=== PATIENT | female | born 1995 | race Caucasian/White ===

== ENCOUNTER 2017-02-03 18:24 | Emergency (ER) | payer SELFPAY ==
[~2017-02-03] VITALS: Ht 152.4 cm; Wt 58.3 kg
--- OUTSIDE RECORDS SUMMARY | 2017-02-03 18:29 | XMS REPORT ---
Author Elen Rivera Organization [employer] Address Unknown Phone Unavailable Care Team Providers Care Shot Man Name Role Phone Elen Dominguez CP Unavailable Allergies No Known Allergies Problems Problem Type Condition Code Onset Dates Condition Status Problem Herpes simplex without mention of complication (HSV) 054.9 Active Problem Chlamydia A74.9 Active Medications Medication Code System Code Instructions Start Date End Date Status Dosage Azithromycin [facility] [address]-65 500 mg Orally Once Jun 22, 2016 Jun 23, 2016 2 tab(s) Results No Known Results Summary Purpose [employer] Submission
--- OUTSIDE RECORDS SUMMARY | 2017-02-03 18:29 | XMS REPORT ---
Author Elen Rivera Organization [employer] Address Unknown Phone Unavailable Care Team Providers Care Igniter Capper Name Role Phone Elen Dominguez CP Unavailable Allergies No Known Allergies Problems Problem Type Condition Code Onset Dates Condition Status Problem Herpes simplex without mention of complication (HSV) 054.9 Active Medications Medication Code System Code Instructions Start Date End Date Status Dosage Acyclovir [facility] [address]-44 400 MG Orally Twice a day Dec 04, 2014 1 tablet Results No Known Results Summary Purpose [employer] Submission
--- OUTSIDE RECORDS SUMMARY | 2017-02-03 18:29 | XMS REPORT ---
Author Elen Rivera Organization [employer] Address Unknown Phone Unavailable Care Team Providers Care Retail Project Merchandiser Name Role Phone Elen Dominguez CP Unavailable Allergies No Known Allergies Problems Problem Type Condition Code Onset Dates Condition Status Problem Herpes simplex without mention of complication (HSV) 054.9 Active Problem Chlamydia A74.9 Active Medications No Known Medications Results No Known Results Summary Purpose [employer] Submission
--- OUTSIDE RECORDS SUMMARY | 2017-02-03 18:29 | XMS REPORT ---
Author Elen Rivera Organization [employer] Address Unknown Phone Unavailable Care Team Providers Care Flight Physician Name Role Phone Elen Dominguez CP Unavailable Allergies No Known Allergies Problems Problem Type Condition Code Onset Dates Condition Status Assessment Surveillance of previously prescribed contraceptive pill (OCP) V25.41 Active Problem Herpes simplex without mention of complication (HSV) 054.9 Active Medications Medication Code System Code Instructions Start Date End Date Status Dosage Sprintec 28 [facility] [address]-19 0.25-35 MG-MCG Orally Once a day 1 tablet Results No Known Results Summary Purpose [employer] Submission
--- OUTSIDE RECORDS SUMMARY | 2017-02-03 18:29 | XMS REPORT ---
Author Elen Rivera [facility] [employer] Address Unknown Phone Unavailable Care Team Providers Care Gasateria Attendant Name Role Phone Elen Dominguez Unavailable Allergies, Adverse Reactions, Alerts Substance Reaction Event Type N.K.D.A. 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.0 Active Medications Medication Code System Code Instructions Start Date End Date Status Dosage Sprintec 28 [facility] [address]-63 0.25-35 MG-MCG Orally Once a day 1 tablet Ibuprofen [facility] [place] [address]-18 600 MG Orally Three times a day 1 tablet Acyclovir [facility] [place] [place] [address]-74 400 MG Orally Twice a day Dec 04, 2014 1 tablet Flagyl [facility] [place] [address]-87 500 mg Orally bid Jun 15, 2016 Jun 22, 2016 1 tablet Procedures Procedure Coding System Code Date GC probe CPT-4 59340 Jun 15, 2016 Wet smear CPT-4 31887 Jun 15, 2016 Chlamydia probe CPT-4 77227 Jun 15, 2016 Preg test, urine CPT-4 34408 Jun 15, 2016 Urinalysis without micro CPT-4 72187 Jun 15, 2016 HPV (Gardasil) CPT-4 83803 Jun 15, 2016 Office visit estab lev 3 CPT-4 59972 Jun 15, 2016 Vital Signs Date/Time: Jun 15, 2016 BMI 24.18 Index Height 61 in Weight 128 lbs Blood Pressure Diastolic 70 mm Hg Blood Pressure Systolic 130 mm Hg Results Name Result Date Reference Range Unit Abnormality Flag * WET MOUNT (CPK & FMW) ----WET MOUNT See Below [id number] * TEST URINE ----UR TEST NEGATIVE [id number] NEGATIVE N * UA URINALYSIS WITH REFLEX ----UA KETONE DIPSTICK NEGATIVE 20160615 NEGATIVE N ----UA GLUCOSE DIPSTICK NEGATIVE 20160615 NEGATIVE N ----UA BILIRUBIN DIPSTICK NEGATIVE 20160615 NEGATIVE N ----UA BLOOD DIPSTICK NEGATIVE 20160615 NEGATIVE N ----UA UROBILINOGEN DIPSTICK NORMAL 20160615 NORMAL N ----UA NITRITE DIPSTICK NEGATIVE 20160615 NEGATIVE N ----UA PROTEIN DIPSTICK TRACE 20160615 NEGATIVE N ----UR PH 5.0 [id number] 5.0-7.0 N ----UA LEUKOCYTE ESTERASE DIPSTICK TRACE 20160615 NEGATIVE N ----UA SPECIFIC GRAVITY 1.025 [id number] 1.015-1.025 N Immunizations Vaccine Administration Date HPV (Gardasil) Jun 15, 2016 Summary Purpose eClinicalWorks Submission
--- OUTSIDE RECORDS SUMMARY | 2017-02-03 18:29 | XMS REPORT | Referral Summary ---
Author Author [facility] Organization [facility] Address Unknown Phone Unavailable Care Team Providers Care Shell Freezing Machine Operator Name Role Phone No PCP, Pt States Primary Care Physician [phone] Encounter [facility] [id number] Date(s): 06/13/15 - 06/13/15 [facility] [address] [place] [address] Final: ALCOHOL ABUSE, UNSPECIFIED DRINKING BEHAVIOR Discharge Diagnosis: Acute alcohol intoxication Discharge Disposition: 01-Home or Self Care Attending Physician: Ryley Ramos MD Admitting Physician: Ryley Ramos MD Vital Signs Most recent to 1 oldest [Reference Range]: Temperature Oral 37 degC [35.8-37.3 degC] (06/13/15 8:23 PM) Peripheral Pulse 81 bpm Rate [60-100 bpm] (06/13/15 8:23 PM) Heart Rate Monitored 85 bpm [60-100 bpm] (06/13/15 11:28 PM) Respiratory Rate 16 br/min [14-20 br/min] (06/13/15 11:28 PM) Blood Pressure 105/74 mmHg [90-140/60-90 mmHg] (06/13/15 11:28 PM) Mean Arterial 89 mmHg Pressure, Cuff (06/13/15 9:25 PM) SpO2 98 % (06/13/15 11:28 PM) Problem List Condition Effective Dates Status Health Status Informant Asthma(Confirmed) Active patient Allergies, Adverse Reactions, Alerts No Known Allergies Medications No data available for this section Results Hematology Most recent to 1 oldest [Reference Range]: WBC [4.8-10.8 5.7 10*3/uL 10*3/uL] (06/13/15 9:29 PM) RBC [4.00-5.20 4.58 10*6/uL 10*6/uL] (06/13/15 9:29 PM) Hgb [12.0-16.0 12.5 gm/dL gm/dL] (06/13/15:29 PM) Hct [37.0-47.0 %] 37.8 % (06/13/15:29 PM) MCV [82.0-99.0 fL] 82.5 fL (06/13/15:29 PM) MCH [27.0-32.0 pg] 27.3 pg (06/13/15: PM) MCHC [32.0-36.0 33.1 gm/dL gm/dL] (06/13/15:29 PM) RDW [11.5-14.5 %] 14.7 % *HI* (06/13/15:29 PM) Platelet [150-400 255 10*3/uL 10*3/uL] (06/13/15:29 PM) MPV [9.4-12.4 fL] 9.4 fL (06/13/15:29 PM) Immature 0.2 % Granulocytes (06/13/1529 PM) [0.0-1.0 %] Neutrophils [51-75 70 % %] (06/13/15:29 PM) Lymphocytes [20-46 24 % %] (06/13/15:29 PM) Monocytes [4-11 %] 4 % (06/13/15:29 PM) Eosinophils [0-4 %] 1 % (06/13/15:29 PM) Basophils [0-2 %] 0 % (06/13/15:29 PM) Neutro Absolute 4.02 10*3 [1.90-7.00 10*3] (06/13/15:29 PM) Lymph Absolute 1.38 10*3 [0.80-3.30 10*3] (06/13/15:29 PM) Person Absolute 0.21 10*3 [0.30-1.00 10*3] *LOW* (06/13/15:29 PM) Eos Absolute 0.08 10*3 [0.00-0.50 10*3] (06/13/15:29 PM) Baso Absolute 0.02 10*3 [0.00-0.20 10*3] (06/13/15:29 PM) Nucleated RBC 0.0 /100 WBC Automated [0 /100 (06/13/15:29 PM) WBC] Chemistry Most recent to 1 oldest [Reference Range]: Sodium Lvl [136-144 143 mEq/L mEq/L] (06/13/15:29 PM) Potassium Lvl 3.4 mEq/L [3.6-5.1 mEq/L] *LOW* (06/13/15:29 PM) Chloride [99-109 108 mEq/L mEq/L] (06/13/15:29 PM) CO2 [22-32 mEq/L] 23 mEq/L (06/13/15:29 PM) AGAP [3-20] 12 (06/13/15:29 PM) BUN [4-20 mg/dL] 9 mg/dL (06/13/15:29 PM) Glucose Lvl [70-100 102 mg/dL mg/dL] *HI* (06/13/15:29 PM) Creatinine Lvl 0.73 mg/dL [0.44-1.03 mg/dL] (06/13/15:29 PM) eGFR [>60] >60 1 (06/13/15:29 PM) Calcium Lvl 9.0 mg/dL [8.6-10.0 mg/dL] (06/13/15:29 PM) Albumin Lvl [3.5-4.8 4.3 gm/dL gm/dL] (06/13/15:29 PM) Total Protein 7.2 gm/dL [6.1-7.9 gm/dL] (06/13/15:29 PM) Globulin [1.9-4.3 2.9 gm/dL gm/dL] (06/13/15:29 PM) ALT [14-54 U/L] 20 U/L (06/13/15:29 PM) AST [15-41 U/L] 27 U/L (06/13/15:29 PM) Alk Phos [26-104 46 U/L U/L] (06/13/15:29 PM) Bili Total [0.2-1.2 0.7 mg/dL 2 mg/dL] (8/8/15 9:29 PM) 1Result Comment: Multiply eGFR results by 1.21 for race. 2Result Comment: Naproxen, specifically the metabolite O-desmethylnaproxen, may cause spurious elevation in Total Bilirubin levels. Therapeutic Drug Monitoring Most recent to 1 oldest [Reference Range]: Acetaminophen Lvl <10 mcg/mL [10-30 mcg/mL] (06/13/15 9:29 PM) Salicylate Lvl [0-30 <4 mg/dL mg/dL] (06/13/15 9:29 PM) Toxicology Most recent to 1 oldest [Reference Range]: Ethanol Lvl 183 mg/dL (06/13/15 9:29 PM) U Amphetamine Scrn Negative (06/13/15 9:29 PM) U Cocaine Scrn Negative (06/13/15 9:29 PM) U Cannab Scrn Negative (06/13/15 9:29 PM) U Opiate Scrn Negative (06/13/15 9:29 PM) U PCP Scrn Negative (06/13/15 9:29 PM) U Benzodiazepine Negative Scrn (06/13/15 9:29 PM) U Barbiturate Scrn Negative (06/13/15 9:29 PM) Methadone Lvl Negative (06/13/15 9:29 PM) Tricyclics Not Detected 1 (06/13/15 9:29 PM) 1Result Comment: Cut-off concentrations: Amphetamines: 1000 ng/mL Cocaine: 300 ng/mL Cannabinoid: 50 ng/mL Opiate: 300 ng/mL Phencyclidine (PCP): 25 ng/mL Benzodiazepine: 200 ng/mL Barbiturate: 200 ng/mL Methadone: 300 ng/mL Tricyclic: 300 ng/mL The urine drug screen assays are qualitative screens. A more specific GC/MS method must be performed to obtain a confirmed analytical result. Unconfirmed screening results must not be used for non-medical purposes(e.g. employment or legal testing) Immunizations No data available for this section Procedures No data available for this section Social History Social History Type Response Smoking Status Unknown if ever smoked Assessment and Plan No data available for this section
--- OUTSIDE RECORDS SUMMARY | 2017-02-03 18:29 | XMS REPORT ---
Author Elen Rivera Organization [employer] Address Unknown Phone Unavailable Care Team Providers Care Meat Pickler Name Role Phone Elen Dominguez CP Unavailable Allergies No Known Allergies Problems Problem Type Condition Code Onset Dates Condition Status Problem Herpes simplex without mention of complication (HSV) 054.9 Active Problem Chlamydia A74.9 Active Medications Medication Code System Code Instructions Start Date End Date Status Dosage Azithromycin [facility] [address]-38 500 mg Orally Once Jun 22, 2016 Jun 25, 2016 2 tab(s) Results No Known Results Summary Purpose eClinicalWorks Submission
--- OUTSIDE RECORDS SUMMARY | 2017-02-03 18:29 | XMS REPORT | Continuity of Care Document ---
Author Author [facility] Organization [facility] Address Unknown Phone Unavailable Allergies Active Description Code Type Severity Reaction Onset Reported/Identified Relationship to Patient Clinical Status Yes No Known Allergies No Known Allergies Drug Allergy Unknown N/A 07/25/2014 Yes No Known Drug Allergy [id number] ND N/A N/A 01/14/2017 Confirmed or Verified Yes No Known Food Allergy NO KNOWN FOOD ALLERG NF N/A N/A 01/14/2017 Confirmed or Verified Medications Problems Procedures Results Test Result Range URINALYSIS, ROUTINE - 07/25/14 16:00 UA LEUKOCYTE ESTERASE DIPSTICK NEGATIVE NEGATIVE UA NITRITE DIPSTICK NEGATIVE NEGATIVE UA PROTEIN DIPSTICK NEGATIVE NEGATIVE UA GLUCOSE DIPSTICK NEGATIVE NEGATIVE UA KETONE DIPSTICK NEGATIVE NEGATIVE UA UROBILINOGEN DIPSTICK NORMAL NORMAL UA BILIRUBIN DIPSTICK NEGATIVE NEGATIVE UA BLOOD DIPSTICK NEGATIVE NEGATIVE UA SPECIFIC GRAVITY 1.005 1.015-1.025 UR PH 6.0 5.0-7.0 UR TEST - 07/25/14 16:00 UR TEST NEGATIVE NEGATIVE GONORRHOEA DNA BY PCR - CHLAMYDIA DNA BY PCR - 07/25/14 16:00 Microbiology WET MOUNT - 07/25/14 16:15 Microbiology GRAM STAIN - CHLAMYDIA DNA BY PCR - 07/25/14 16:15 Microbiology URINALYSIS, ROUTINE - 08/03/14 21:36 UA LEUKOCYTE ESTERASE DIPSTICK 1+ NEGATIVE UA NITRITE DIPSTICK NEGATIVE NEGATIVE UA PROTEIN DIPSTICK NEGATIVE NEGATIVE UA GLUCOSE DIPSTICK NEGATIVE NEGATIVE UA KETONE DIPSTICK NEGATIVE NEGATIVE UA UROBILINOGEN DIPSTICK NORMAL NORMAL UA BILIRUBIN DIPSTICK NEGATIVE NEGATIVE UA BLOOD DIPSTICK NEGATIVE NEGATIVE UA SPECIFIC GRAVITY 1.010 1.015-1.025 UR PH 7.0 5.0-7.0 UR TEST - 08/03/14 21:36 UR TEST NEGATIVE NEGATIVE UA MICROSCOPIC - 08/03/14 21:36 UA BACTERIA 2+ NEGATIVE UA EPITHELIAL CELLS 4+ epi/hpf 0 - 1+ UA MUCUS 1+ NEG TO 1+ UA RBC 0 rbc/hpf 0 - 3 UA VOLUME FOR EXAM 12.0 mL (12mL STD) UA WBC 0-1 wbc/hpf 0 - 5 VIRUS HERPES CULTURE - 08/03/14 22:00 Microbiology URINALYSIS, ROUTINE - 11/01/14 18:56 UA LEUKOCYTE ESTERASE DIPSTICK TRACE NEGATIVE UA NITRITE DIPSTICK NEGATIVE NEGATIVE UA PROTEIN DIPSTICK NEGATIVE NEGATIVE UA GLUCOSE DIPSTICK NEGATIVE NEGATIVE UA KETONE DIPSTICK NEGATIVE NEGATIVE UA UROBILINOGEN DIPSTICK NORMAL NORMAL UA BILIRUBIN DIPSTICK NEGATIVE NEGATIVE UA BLOOD DIPSTICK NEGATIVE NEGATIVE UA SPECIFIC GRAVITY 1.010 1.015-1.025 UR PH 8.0 5.0-7.0 UR TEST - 11/01/14 18:56 UR TEST NEGATIVE NEGATIVE UA MICROSCOPIC - 11/01/14 18:56 UA BACTERIA 1+ NEGATIVE UA EPITHELIAL CELLS 1+ epi/hpf 0 - 1+ UA RBC 0-3 rbc/hpf 0 - 3 UA VOLUME FOR EXAM 12.0 mL (12mL STD) UA WBC 0-1 wbc/hpf 0 - 5 WET MOUNT - 11/01/14 20:02 Microbiology GRAM STAIN - CHLAMYDIA DNA BY PCR - 11/01/14 20:02 Microbiology WET MOUNT - 07/29/15 12:17 Microbiology GONORRHOEA DNA BY PCR - CHLAMYDIA DNA BY PCR - 07/29/15 12:17 GONORRHOEA DNA BY PCR See Below Microbiology Comprehensive Metabolic Panel - 01/14/17 06:28 Sodium 139 MMOLL 134-145 Potassium 4.1 MMOLL 3.6-5.0 Chloride 102 MMOLL 98-107 CO2 24 MMOLL 22-30 Glucose 139 MG/DL 75-110 BUN 13 MG/DL 9-20 Creatinine .73 MG/DL 0.8-1.7 Calcium 8.5 MG/DL 8.4-10.2 T Bili .9 MG/DL 0.2-1.3 T. Protein 7.2 G/DL 6.3-8.2 A/G Ratio 1.3 RATIO Albumin 4.0 G/DL 3.5-5.0 Alk Phos 55 U/L 38-126 ALT 32 U/L 11-66 AST 25 U/L 14-36 EGFR 101 MLMIN Urine - 01/14/17 06:28 Urine NEG Urinalysis - 01/14/17 06:41 Squamous Epis N11-15 Bilirubin Negative Negative Blood 1+ Negative Color Yellow Glucose Negative Negative Ketones Negative Negative Leukocyte Negative Negative Nitrite Negative Negative pH 8.5 5.0-9.0 Urine Appearance Clear Protein Trace Negative Urobilinogen 0.2 MG/DL 0.20 Urine Bacteria Trace Urine Comments NEW SAMPLE Urine RBC N0-2 Specific [place] 1.020 1.005-1.030 Urine WBC N0-2 Site UNK CBC - 01/14/17 07:31 Eos # 0.02 x10^3 0-0.5 Eos % 0.2 % 0-4 HCT 40.7 % 37.0-47.0 HGB 13.6 G/DL 12.0-16.0 Lymph # 0.54 x10^3 1.0-4.0 Lymph % 4.7 % 20-50 MCH 28.9 PG 27.0-31.0 MCHC 33.4 G/DL 32.0-36.0 MCV 86.6 FL 81-99 White # 0.19 x10^3 0.0-0.8 White % 1.7 % 1.0-9.0 MPV 9.2 FL 6.0-10.0 Platelet 218 x10^3 150-400 RBC 4.70 x10^3 4.20-5.40 RDW 13.6 % 12-15 WBC 11.46 x10^3 4.8-10.8 Baso # 0.00 x10^3 0-0.2 Baso % 0.0 % 0-2 Neut % 93.4 % 50-70 Neut # 10.71 x10^3 3.0-7.0 AFFIRM Vaginitis Panel - 01/14/17 08:09 Gardnerella POS Negative Trichomonas NEG Negative Gwendolyn POS Negative GC Chlamydia Probe Screen - 01/15/17 15:06 GC Profile Screen Source VAG GC Chlamydia Probe See Comment URINALYSIS, ROUTINE - 01/16/17 15:00 UA LEUKOCYTE ESTERASE DIPSTICK 2+ NEGATIVE UA NITRITE DIPSTICK NEGATIVE NEGATIVE UA PROTEIN DIPSTICK 1+ NEGATIVE UA GLUCOSE DIPSTICK NEGATIVE NEGATIVE UA KETONE DIPSTICK NEGATIVE NEGATIVE UA UROBILINOGEN DIPSTICK 2+ NORMAL UA BILIRUBIN DIPSTICK 1+ NEGATIVE UA BLOOD DIPSTICK 4+ NEGATIVE UA SPECIFIC GRAVITY 1.015 1.015-1.025 UR PH 6.0 5.0-7.0 UA MICROSCOPIC - 01/16/17 15:00 UA BACTERIA 1+ NEGATIVE UA EPITHELIAL CELLS 4+ epi/hpf 0 - 1+ UA MUCUS 2+ NEG TO 1+ UA RBC 20-50 rbc/hpf 0 - 3 UA VOLUME FOR EXAM 12.0 mL (12mL STD) UA WBC 2-5 wbc/hpf 0 - 5 UR TEST - 01/16/17 15:00 UR TEST NEGATIVE NEGATIVE CBC W/DIFF - 01/16/17 15:20 EOSINOPHIL # 0.1 k/cumm 0.1-0.5 EOSINOPHIL % 1 % 2-4 GRANULOCYTE # 9.6 k/cumm 2.0-9.0 GRANULOCYTE % 83 % 50-75 LYMPHOCYTE # 1.2 k/cumm 1.0-4.0 LYMPHOCYTE % 10 % 20-30 MEAN CELL HGB 28.9 pg 27.0-33.0 MEAN CELL HGB CONCENTRATION 33.9 g/dL 32.0-37.0 MEAN CELL VOLUME 85.2 fl 80.0-100.0 MONOCYTE # 0.7 k/cumm 0.1-1.0 MONOCYTE % 6 % 4-6 RED BLOOD CELL 4.40 m/cumm 4.00-6.00 RED CELL DISTRIBUTION WIDTH 13.9 % 11.0- 15.6 WHITE BLOOD CELL 11.6 k/cumm 5.0-10.0 HEMOGLOBIN 12.7 gm/dL 12.0-16.0 HEMATOCRIT 37.5 % 37.0-47.0 PLATELET COUNT 255 k/cumm 150-450 METABOLIC PANEL, COMPREHN - 01/16/17 15:20 POTASSIUM 3.2 mmol/L 3.5-5.3 EST GFR (MDRD) > 60 mL/min > 59 ANION GAP 9 mmol/L 5-15 EST CrCl (CG) 58 mL/min > 59 GLUCOSE 103 mg/dL 70-99 CALCIUM 9.4 mg/dL 8.5-10.1 BLOOD UREA NITROGEN 20 mg/dL 7-20 CREATININE 1.1 mg/dL 0.6-1.0 SODIUM 139 mmol/L 135-148 CHLORIDE 101 mmol/L 98-110 AST/SGOT 25 Units/L 10-37 ALT/SGPT 24 Units/L < 66 CARBON DIOXIDE 29 mmol/L 21-32 TOTAL PROTEIN 8.1 gm/dL 6.4-8.2 ALBUMIN 3.6 gm/dL 3.4-5.0 BILI TOTAL 0.8 mg/dL 0.0-1.0 ALKALINE PHOSPHATASE TOTAL 81 IU/L 45- 117 WET MOUNT - 01/16/17 17:00 Microbiology GRAM STAIN - CHLAMYDIA DNA BY PCR - 01/16/17 17:00 Microbiology CHLAMYDIA DNA BY PCR - 01/16/17 17:00 Microbiology Encounters ACCT No. Visit Date/Time Discharge Status Pt. Type Provider Facility Loc./Unit Complaint [id number] 01/16/2017 14:51:00 2016 19:18:00 DIS Emergency Lisa RICHARD, Syed [facility] W.EDW [id number] 11/01/2014 17:17:00 2013 21:50:00 DIS [facility] [id number] 08/03/2014 19:35:00 2013 22:14:00 DIS Emergency Madhuri RICHARD, [facility] W.EDW [id number] 07/25/2014 15:45:00 2013 17:15:00 DIS Emergency Secrist , [facility] W.ED [id number] 05/03/2013 11:52:00 2012 12:20:00 DIS Emergency Secrist [facility].EDW [id number] 07/29/2015 12:17:00 Document Registration
--- OUTSIDE RECORDS SUMMARY | 2017-02-03 18:29 | XMS REPORT ---
Author Jayshree Valdez Organization [employer] Address Unknown Phone Unavailable Care Team Providers Care Sewer Cleaner Name Role Phone Jayshree Odonnell CP Unavailable Allergies No Known Allergies Problems Problem Type Condition Code Onset Dates Condition Status Problem Herpes simplex without mention of complication (HSV) 054.9 Active Medications No Known Medications Results No Known Results Summary Purpose [employer] Submission
[2017-02-03 18:45] VITALS: Ht 152.4 cm; Wt 58.3 kg
[2017-02-03] MEDS ORDERED: ACYC400T PO (18:54)
--- OUTSIDE RECORDS SUMMARY | 2017-02-03 19:00 | XMS REPORT | Continuity of Care Document ---
Author Author [facility] Organization [facility] Address Unknown Phone Unavailable Allergies Active Description Code Type Severity Reaction Onset Reported/Identified Relationship to Patient Clinical Status Yes No Known Allergies No Known Allergies Drug Allergy Unknown N/A 07/25/2014 Yes No Known Drug Allergy [id number] ND N/A N/A 01/14/2017 Confirmed or Verified [...] Comments NEW SAMPLE Urine RBC N0-2 Specific Echo 1.020 1.005-1.030 Urine WBC N0-2 Site UNK CBC - 01/14/17 07:31 Eos # 0.02 x10^3 0-0.5 Eos % 0.2 % 0-4 HCT 40.7 % 37.0-47.0 HGB 13.6 G/DL 12.0-16.0 Lymph # 0.54 x10^3 1.0-4.0 Lymph % 4.7 % 20-50 MCH 28.9 PG 27.0-31.0 MCHC 33.4 G/DL 32.0-36.0 MCV 86.6 FL 81-99 [place] # 0.19 x10^3 0.0-0.8 [place] % 1.7 % 1.0-9.0 MPV 9.2 FL [...] Status Pt. Type Provider Facility Loc./Unit Complaint [id number] 01/16/2017 14:51:00 2016 19:18:00 DIS Emergency Lisa RICHARD, Syed [facility] W.EDW [id number] 11/01/2014 17:17:00 2013 21:50:00 DIS [facility] [id number] 08/03/2014 19:35:00 2013 22:14:00 DIS Emergency Madhuri RICHARD, [facility] W.EDW [id number] 07/25/2014 15:45:00 2013 17:15:00 DIS Emergency Secrist , [facility] W.ED [id number] 05/03/2013 11:52:00 2012 12:20:00 DIS Emergency Secrist [facility].EDW [id number] 07/29/2015 12:17:00 Document Registration
[2017-02-03] MEDS ORDERED: KETOROLAC 60mg/2ml INJECTION IM ONE (19:30)
--- NOTE | 2017-02-03 19:40 | NUR ---
PROVIDER AT BEDSIDE
[2017-02-03 19:56] LABS: BLOOD, URINE NEGATIVE (NEGATIVE); COLOR,URINE YELLOW (YELLOW); LEUKOCYTE ESTERASE ,URINE NEGATIVE (NEGATIVE); NITRITE,URINE NEGATIVE (NEGATIVE); UROBILINOGEN,URINE 0.2 EU/DL (NORMAL)
[2017-02-03] MEDS ORDERED: AZITHROMYCIN 500 MG TABLET PO ONE (20:00)
[2017-02-03] MEDS ORDERED: CEFTRIAXONE 250 MG INJECTION IM ONE (20:00)
[2017-02-03] MEDS ORDERED: ONDA4TAB7 PO (20:04)
--- NOTE | 2017-02-03 20:05 | ERPDOC ---
Departure Disposition Decision Date: Feb 03, 2017 Disposition Decision Time: 20:02 Disposition: 01 DISCHARGED HOME, SELF-CARE Impression Impression Impression: Primary Impression: PID (acute pelvic inflammatory disease) Additional Impression: Chlamydia infection Severity: Moderate Condition: Improved Seen By: Physician only Referrals: YOUR PHYSICIAN 1 Week Patient Instructions: Pelvic Inflammatory Disease (ED) Problems/Meds/Labs Reviewed?: Yes Medications reviewed and manag: Yes Additional Instructions: You have been treated for PID. Do not have unprotected sex until your partner is evaluated and treated too. Follow up with your doctor in the next week. Follow up care ordered?: Yes Mental Status: Alert, Oriented Scripts Ondansetron (Zofran Odt) 4 Mg Tab.rapdis 4 MG PO QID Y for NAUSEA &/OR VOMITING, #20 TAB 0 Refills Prov: MARCHTAJ DO 02/03/17 HPI - Female General Chief Complaint: Female Urogenital Problems Stated Complaint: SHARP STOMACH PAINS Time Seen by Provider: 18:55 Source: patient, family Exam Limitations: no limitations HPI - Female Initial Comments 21yo woman presents to the ER for recurrent lower abdominal pain. Pt has sharp, abdominal pain that started 1 week ago and has become progressively worse. Now cannot find comfort in any position, and movement causes severe pain. Pt had similar sx 1 month ago; was dx'ed with chlamydial PID. Pt underwent successful treatment. Has since had unprotected intercourse with the same man (her current boyfriend, who was not treated). Pt is pretty sure that she has PID again, since this feels identical. Occurred At: home Onset: Gradual, Getting worse Duration: 1 week Pain Scale: Now & Worst: 8/10 Severity/Quality: aching, sharpness, throbbing Location: RLQ, LLQ, vaginal Activities at Onset: none Prior Genitourinary Problems: similar symptoms Sexual [place] History: single partner Modifying Factors: WORSE WITH: movement, palpation, sitting, walking Associated Symptoms: fever/chills, nausea/vomiting Hx of Similar Symptoms: Yes Is Pt now?: No Allergies: Coded Allergies: NKDA (Verified Allergy, Unknown, 02/03/17) Past History Past Medical History Female: PID Review of Systems GI Upper Abdomen: nausea, DENIES: vomiting Lower Abdomen: pain, DENIES: constipation, diarrhea General: burning, hx of STD's, pain Female: burning, itching, pelvic pain, vaginal discharge All other Systems All Other Systems: Reviewed and Negative Physical Exam General General Nourishment: well nourished, well developed, appears stated age, no acute distress, adult General Body Habitus: well groomed Vitals and Pain Weight: Kilograms: 58.300 Height (feet): 5 Height (inches): 0 Triage Pain Scale: RN VS reviewed by Provider: Yes Normal Exams: Head: Normocephalic w/o trauma Eyes: Pupils are PERRLA w/ EOMI, No scleral icterus, irritation ENMT: No facial trauma, nasal exudates, pharyngeal erythema Neck: Full range of motion, without adenopathy, JVD Chest/Resp: Clear all [place], with good airflow, and symmetry bilaterally CV: Regular rate and rhythm, without murmur or gallop, Pulses 2+ all extremities Lymphatic: No lymphadenopathy Musculoskeletal: No tenderness, or deformity noted Integumentary: No rashes, hives, or bruising noted Neurologic: Patient is alert, and oriented Psychiatric: Patient exhibits, appropriate attention Abdomen (brief) Abdominal Brief: FOUND: bowel normo active x4, soft, tender (Throughout lower abdomen), NOT FOUND: distended, hepatosplenomegaly, pulsatile mass Vulva: NOT FOUND: ecchymosis, erythema, lesion, swelling Urethra: NOT FOUND: scarring, tender Vagina: FOUND: color, discharge (Thick, white), moisture, NOT FOUND: Bartholin gland, atrophy, blood, tissue Cervix: FOUND: color, motion tenderness, NOT FOUND: IUD, bleeding, dilation, lesion, tissue Uterus: FOUND: tender, NOT FOUND: enlarged, masses Ovaries: FOUND: tender, NOT FOUND: enlarged Differential Diagnoses Considering: IBS, IBD, PID, Tubovarian Abscess, UTI Progress Results/Orders Orders Procedure Category Date Status Time Ua, Dip Wreflex LAB 02/03/17 Complete [employer] 19:06 Ketorolac (Toradol) PHA 02/03/17 Complete 19:30 LAB 02/03/17 Complete Qualitative, Urine 19:28 Azithromycin PHA 02/03/17 Complete (Zithromax 500 Mg) 20:00 Ceftriaxone (Rocephin) PHA 02/03/17 Complete 20:00 Ondansetron Odt PHA 02/03/17 Complete (Prepack) (Zofran Odt 20:15 Ondansetron Odt PHA 02/03/17 Complete (Zofran Odt) 20:30 Lab Results Laboratory Tests Test 02/03/17 19:51 Urine Collection Type Cleancatch-midstream Urine Color Yellow Urine Turbidity Clear Urine pH 5.5 Urine Specific [place] 1.010 Urine Protein Negative Urine Glucose (UA) Negative Urine Ketones Negative Urine Blood Negative Urine Nitrite Negative Urine Bilirubin Negative Urine Urobilinogen 0.2EU/DL Urine Leukocyte Esterase Negative Urinalysis Comment Microscopic not ind. Urine Test Negative Medications Current ED Medications Ketorolac Tromethamine (Toradol) 60 mg O ONCE IM Last administered on 19:37; Start 02/03/17 at 19:30; Stop 02/03/17 at 19:31; Status DC Azithromycin (ZITHROMAX 500 mg) 1,000 mg O ONCE PO Last administered on 21:04; Start 02/03/17 at 20:00; Stop 02/03/17 at 20:02; Status DC Ceftriaxone Sodium (Rocephin) 250 mg O ONCE IM Last administered on 02/03/17 21:03; Start 02/03/17 at 20:00; Stop 02/03/17 at 20:02; Status DC Ondansetron HCl (ZOFRAN ODT (PrePack)) 1 pack O ONCE SENT HOME Last administered on 02/03/17 21:04; Start 02/03/17 at 20:15; Stop 02/03/17 at 20:16 ; Status DC Ondansetron HCl (Zofran Odt) 4 mg O ONCE PO Last administered on 02/03/17 19: 40; Start 02/03/17 at 20:30; Stop 02/03/17 at 20:31; Status DC Progress Progress PID by clinical criteria. Will treat for G/C appropriately and have counseled pt and partner extensively on preventing future recurrences. Both voiced understanding. F/u with PCM. TAJ PRITCHETT DO Feb 03, 2017 20:05
[2017-02-03] MEDS ORDERED: ONDANSETRON ODT 4mg #3 (PrePack) SENT HOME ONE (20:15)
[2017-02-03] MEDS ORDERED: ONDANSETRON ODT 4 MG TAB PO ONE (20:30)
[2017-02-03 21:11] VITALS: BP 107/73; PULSE 65; RESP 18; TEMP 98.4; O2SAT 99
--- NOTE | 2017-02-03 21:11 | NUR ---
DEPART PT GIVEN DI FOR PID, ZOFRAN, F/U. RX/PREPAK PROVIDED FOR ZOFRAN. PT VERBALIZES UNDERSTANDING OF DI AND MEDS. QUESTIONS ASKED/ANSWERED - DENIES FURTHER QUESTIONS/NEEDS AT THIS TIME. PERSONAL BELONGINGS GATHERED. PT AMBULATED/ESCORTED TO ED EXIT - GAIT STABLE, NO SIGN OF DISTRESS.
== END 2017-02-03 21:11 | disposition home or self-care (01) ==
LOC: ED 18:24
DX: A56.11 Chlamydial female pelvic inflammatory disease (principal)
CPT/HCPCS: 81003; 81025; 96372